=== PATIENT | female | born 1990 | race African-American/Black ===

== ENCOUNTER 2022-02-22 09:18 | Emergency (ER) | payer OTHER ==
[~2022-02-22] VITALS: Ht 180.3 cm; Wt 64.0 kg
[2022-02-22 09:26] VITALS: BP 112/66
[2022-02-22] MEDS ORDERED: ACETAMINOPHEN 500MG TABLET PO ONE (12:15)
[2022-02-22 12:29] LABS: BASOPHILS % 0.5 % (0.0-2.0); EOSINOPHILS % 1.8 % (0.0-5.0); HEMATOCRIT. 37.3 % (36.0-48.0); HEMOGLOBIN. 12.5 g/dL (12.0-16.0); LYMPHOCYTES % 16.1 % (20.0-50.0); MEAN CORPUSCULAR HEMOGLOBIN 31.4 pg (28.0-32.0); MEAN CORPUSCULAR VOLUME 93.8 fL (81.0-99.0); MONOCYTES % 7.1 % (2.0-8.0); NEUTROPHILS % 74.5 % (40.0-76.0); PLATELET 253 x1000/uL (130-400); RED BLOOD CELL COUNT 3.98 mill/uL (4.2-5.4); RED CELL DISTRIBUTION WIDTH 14.5 % (11.6-14.6)
[2022-02-22 12:34] LABS: CHLORIDE 101 mEq/L (98-107)
[2022-02-22 12:54] LABS: PROTHROMBIN TIME 10.3 sec (9.6-11.0)
[2022-02-22 12:56] LABS: B-HCG QUANTITATIVE 68135 mIU/mL (<3)
[2022-02-22 13:06] LABS: CLARITY URINE CLOUDY (CLEAR); COLOR URINE DARK YELLOW (YELLOW); KETONES URINE 4+ (NEGATIVE); LEUKOCYTE ESTERASE URINE 2+ (NEGATIVE); NITRITE URINE NEGATIVE (NEGATIVE); OCCULT BLOOD URINE 3+ (NEGATIVE); PH URINE 5.5 (4.5-8.0); PROTEIN URINE 2+ (NEGATIVE); SPECIFIC GRAVITY URINE 1.029 (1.005-1.030)
[2022-02-22] MEDS ORDERED: CEPH500T MT (13:23)
[2022-02-22] MEDS ORDERED: IRON1TAB68 MT (13:23)
[2022-02-22] MEDS ORDERED: TOPUD MT (13:23)
== END 2022-02-22 13:48 | disposition home or self-care (01) ==
LOC: ER 09:18
DX: O20.0 Threatened abortion (principal); O23.41 Unspecified infection of urinary tract in pregnancy, first trimester; N39.0 Urinary tract infection, site not specified; Z3A.12 12 weeks gestation of pregnancy; Z90.49 Acquired absence of other specified parts of digestive tract
CPT/HCPCS: 36415; 76801; 80053; 81003; 81025; 84702; 85025; 86850; 86900; 87077; 87186; 99284